=== PATIENT | female | born 1925 | race Caucasian/White ===

== ENCOUNTER 2016-11-16 11:21 | Emergency (ER) | payer MEDICARE, BC ==
[2016-11-16] MEDS ORDERED: SODIUM CHLORIDE 0.9% FLUSH 10 ML SOL IV PRN (11:30)
[2016-11-16] MEDS ORDERED: ASPIRIN 81 MG CHEWABLE CTB PO ONE (11:35)
[2016-11-16 11:46] LABS: BASOPHILS % (AUTO) 2 % (0-3); EOSINOPHILS % (AUTO) 5 % (0-9); HEMATOCRIT 31 % (35-47); MEAN CORPUSCULAR HGB CONC 34.9 gm/dl (32.0-36.0); MEAN CORPUSCULAR VOLUME 85 fL (81-99); MONOCYTES % (AUTO) 11.9 % (0-12); NEUTROPHILS % (AUTO) 55.7 % (37-80)
[2016-11-16] MEDS ORDERED: ASPIRIN 81 MG CHEWABLE CTB ONE (11:52)
[2016-11-16 12:01] LABS: GLOM FILT RATE 47 mL/min (>60); POTASSIUM 3.8 mMol/L (3.5-5.1); SODIUM 140 mMol/L (136-145)
[2016-11-16 18:16] VITALS: BP 169/72; PULSE 93; RESP 29; TEMP 99.3; O2SAT 99
== END 2016-11-16 12:55 | disposition home or self-care (01) | DRG 313 ==
LOC: ED 11:21
DX: R07.89 Other chest pain (principal); R06.00 Dyspnea, unspecified
CPT/HCPCS: 71010; 80048; 82550; 84484; 85025; 85610; 85730; 93005; 99283